=== PATIENT | female | born 1990 | race Caucasian/White ===

== ENCOUNTER 2019-05-16 19:29 | Emergency (ER) | payer OTHER ==
[~2019-05-16] VITALS: Ht 172.7 cm; Wt 68.5 kg
[2019-05-16] MEDS ORDERED: CLARITIN10 M2 PO (19:56)
[2019-05-16] MEDS ORDERED: PROAIR HFA8.5 GM INH (19:57)
[2019-05-16] MEDS ORDERED: CALCIUM CARBON500 MG PO (19:57)
[2019-05-16] MEDS ORDERED: VITAMIN B122500 MCG PO (19:57)
[2019-05-16] MEDS ORDERED: WOMEN'S MULTI200 MCG PO (19:57)
[2019-05-16] MEDS ORDERED: BIOTIN5 MG PO (19:58)
[2019-05-16] MEDS ORDERED: B-COMPLEX WITH1 EAC3 PO (19:58)
[2019-05-16] MEDS ORDERED: FIBER500 MG PO (19:58)
[2019-05-16 23:17] LABS: ABSOLUTE NEUTROPHILS 7.8 thou/uL (1.4-8.2); BASOPHILS 0.5 % (0.0-2.0); EOSINOPHILS 0.5 % (0.0-3.0); HEMATOCRIT 41.6 % (37.0-47.0); HEMOGLOBIN 13.2 gm/dL (12.0-15.0); LYMPHOCYTES 21.1 % (24.0-44.0); MCH 27.6 pg (26.0-34.0); MCHC 31.8 g/dL (28.0-37.0); MCV 86.7 fL (80.0-100.0); MONOCYTES 6.9 % (1.0-8.0); PLATELET COUNT 251 thou/uL (150-400); RDW 12.6 % (10.5-14.5)
[2019-05-16 23:18] LABS: CALCIUM 9.3 mg/dL (8.5-10.1); CREATININE 0.6 mg/dL (0.6-1.0); POTASSIUM 3.9 mmol/L (3.5-5.1)
[2019-05-16 23:25] LABS: ALBUMIN 4.6 g/dL (3.4-5.0); TOTAL BILIRUBIN 0.3 mg/dL (<0.1-1.0); TOTAL PROTEIN 8.8 g/dL (6.4-8.2)
[2019-05-16 23:54] VITALS: BP 107/65
== END 2019-05-16 23:57 | disposition home or self-care (01) ==
LOC: ER 19:29
PROVIDERS: Emergency Medicine
DX: R10.11 Right upper quadrant pain (principal); J45.909 Unspecified asthma, uncomplicated; Z98.890 Other specified postprocedural states; Z88.2 Allergy status to sulfonamides